=== PATIENT | male | born 1985 | race Caucasian/White ===

== ENCOUNTER 2024-07-30 11:32 | Emergency (ER) | payer MEDICAID ==
[2024-07-30 12:04] VITALS: RESP 20
[2024-07-30] MEDS ORDERED: TYLENOL EXTRA STRENGTH 500 MG ONE (12:05)
[2024-07-30] MEDS: TYLENOL EXTRA STRENGTH 500 MG PO STA (12:07)
[2024-07-30 12:27] LABS: Group A Strep NOT DETECTED (NEGATIVE)
[2024-07-30 12:39] LABS: INFLUENZA B NEGATIVE (NEGATIVE); RESPIRATORY SYNCTIAL VIRUS NEGATIVE (NEGATIVE); SARS-CoV-2 Xpert Express NEGATIVE (NEGATIVE)
[2024-07-30 12:40] LABS: INFLUENZA A POSITIVE (NEGATIVE)
--- NOTE | 2024-07-30 12:44 | ERPHSYRPT ---
- History of Present Illness Time Seen by Provider: 07/30/24 12:45 Patient Subjective Stated Complaint: Fever Triage Nursing Assessment: Patient ambulated back to ED and transferred self to bed. Patient A+O X3. Patient's skin flushed, warm and dry. Patient complains of fever, non productive cough, nausea and body aches since this AM. Patient called into work and was told to come to ER for work note. Lungs clear a/p beverley. Physician History: 39-year-old male presents to our ED for evaluation of cough fever body aches. Patient called into work today. They advised him to come to our ED for an evaluation and a work note. Patient's symptoms are constant. Symptoms are moderate in intensity. No specific worsening or improving factors. No chest pain or shortness of breath. No nausea vomiting or diaphoresis. No rash. Patient states he is otherwise healthy. He voices no other complaints or concerns at this time. Portions of this note were created with voice recognition technology. There may be grammatical, spelling, punctuation or sound alike errors Timing/Duration: today Severity: moderate Modifying Factors: Improves With: nothing Associated Symptoms: denies symptoms Allergies/Adverse Reactions: No Known Drug Allergies Allergy (Unverified 07/30/24 11:58) Home Medications: No Reportable Medications [No Reported Medications] 07/30/24 [History] Hx Tetanus, Diphtheria Vaccination/Date Given: No Hx Influenza Vaccination/Date Given: No Hx Pneumococcal Vaccination/Date Given: No Immunizations Up to Date: Yes Travel Risk - International Travel Have you traveled outside of the country in past 3 weeks: No - Emerging Infectious Disease Are you exhibiting symptoms associated with any current EIDs: Yes Symptoms: Cough: New Onset, Fever - Review of Systems Constitutional: No Symptoms, No Fever, No Chills Eyes: No Symptoms Ears, Nose, & Throat: No Symptoms Respiratory: No Symptoms, No Cough, No Dyspnea Cardiac: No Symptoms, No Chest Pain, No Edema, No Syncope Abdominal/Gastrointestinal: No Symptoms, No Abdominal Pain, No Nausea, No Vomiting, No Diarrhea Genitourinary Symptoms: No Symptoms, No Dysuria Musculoskeletal: No Symptoms, No Back Pain, No Neck Pain Skin: No Symptoms, No Rash Neurological: No Symptoms, No Dizziness, No Focal Weakness, No Sensory Changes Psychological: No Symptoms Endocrine: No Symptoms Hematologic/Lymphatic: No Symptoms Immunological/Allergic: No Symptoms All Other Systems: Reviewed and Negative - Past Medical History Pertinent Past Medical History: No Neurological History: No Pertinent History ENT History: No Pertinent History Cardiac History: No Pertinent History Respiratory History: No Pertinent History Endocrine Medical History: No Pertinent History Musculoskeletal History: No Pertinent History GI Medical History: No Pertinent History History: No Pertinent History Psycho-Social History: No Pertinent History Male Reproductive Disorders: No Pertinent History - Past Surgical History Past Surgical History: Yes Neuro Surgical History: No Pertinent History Cardiac: No Pertinent History Respiratory: No Pertinent History Gastrointestinal: No Pertinent History Genitourinary: No Pertinent History Musculoskeletal: Orthopedic Surgery Other Surgical History: Right ankle surgery - Social History Smoking Status: Current every day smoker How long have you smoked: years Exposure to second hand smoke: No Drug Use: none - Social Determinants of Health Will the patient participate in the screening: Yes Do you worry about a steady place to live?: No Do you have any problems with any of the following?: No known problems In the past 12 months,have you had to go without utilities?: No Transportation Issues: No Has anyone in your support network made you feel unsafe?: No Have you or anyone in your house had to go without enough: No - Nursing Vital Signs Nursing Vital Signs: Initial Vital Signs Temperature 100.5 F 07/30/24 11:58 Pulse Rate 108 H 07/30/24 11:58 Respiratory Rate 20 07/30/24 11:58 Blood Pressure 133/63 07/30/24 11:58 O2 Sat by Pulse Oximetry 98 07/30/24 11:58 Pain Scale Pain Intensity 5 - Physical Exam General Appearance: no apparent distress, alert Eye Exam: PERRL/EOMI, eyes nml inspection Ears, Nose, Throat Exam: normal ENT inspection, TMs normal, pharynx normal, moist mucous membranes Neck Exam: normal inspection, non-tender, supple, full range of motion Respiratory Exam: normal breath sounds, lungs clear, airway intact, No respiratory distress Cardiovascular Exam: regular rate/rhythm, normal heart sounds, normal peripheral pulses Gastrointestinal/Abdomen Exam: soft, normal bowel sounds, No tenderness, No mass Back Exam: normal inspection, normal range of motion, No CVA tenderness, No vertebral tenderness Extremity Exam: normal inspection, normal range of motion, pelvis stable Neurologic Exam: alert, oriented x 3, cooperative, normal mood/affect, sensation nml, No motor deficits Skin Exam: normal color, warm, dry, No rash Lymphatic Exam: No adenopathy SpO2 Interpretation: normal SpO2: 98 O2 Delivery: Room Air - Course Nursing assessment & vital signs reviewed: Yes - Radiology Exams Chest X-ray Interpretation: Discussed w/ radiologist (Nonremarkable chest x-ray) Ordered Tests: Active Orders 24 hr Category Date Time Status CHEST 1 VIEW (PORTABLE) Stat Exams 07/30/24 12:29 Completed Medication Summary Discontinued Medications Generic Name Dose Route Start Last Admin Trade Name Rose PRN Reason Stop Dose Admin Acetaminophen 1,000 mg 07/30/24 12:03 07/30/24 12:07 Acetaminophen 500 Mg Tablet PO 07/30/24 12:04 1,000 mg STAT STA Administration Acetaminophen Confirm 07/30/24 12:05 Acetaminophen 500 Mg Tablet Administered 07/30/24 12:06 Dose 1,000 mg .ROUTE .STK-MED ONE Ketorolac Tromethamine 60 mg 07/30/24 12:29 Ketorolac Tromethamine 30 Mg/Ml Inj IM 07/30/24 12:30 STAT ONE Lab/Rad Data: Laboratory Results 07/30/24 Range/Units 11:45 Influenza Type A Ag POSITIVE A (NEGATIVE) Influenza Type B Ag NEGATIVE (NEGATIVE) RSV (PCR) NEGATIVE (NEGATIVE) SARS-CoV-2 (PCR) NEGATIVE (NEGATIVE) Group A Strep Antibody NOT DETECTED (NEGATIVE) - Progress Progress: improved Progress Note: 39-year-old male presents for emergency department for evaluation of bodyaches cough and fever. Physical exam essentially nonremarkable. Patient is influenza A+. Patient received Tylenol and Motrin for myalgias. In light of patient's cough and fever chest x-ray was completed. Chest x-ray negative for acute pathology. No indication for further workup. Will discharge home. Work note provided. Patient instructed on symptomatic care and hydration. Patient agrees to follow-up with his primary care doctor within 48 hours for reevaluation. He voices no other complaints or concerns at this time. Portions of this note were created with voice recognition technology. There may be grammatical, spelling, punctuation or sound alike errors Complexity of problem addressed is moderate acute complicated. No critical care time. Complexity of data reviewed and analyzes is moderate. Test ordered chest reviewed results analyzed and correlated clinically with history and physical exam. Risk of complication and or risk of morbidity/mortality of patient management is low. Vital stable. Time spent to discharge patient is approximately 15 minutes. Plan of care established for shared decision making. No social determinants of health present to impede follow-up. Portions of this note were created with voice recognition technology. There may be grammatical, spelling, punctuation or sound alike errors 07/30/24 12:54 Counseled pt/family regarding: lab results, diagnosis, need for follow-up, rad results - Departure Departure Disposition: Home Clinical Impression: Influenza A, Body aches, Viral syndrome Condition: Stable Critical Care Time: No Referrals: DOCTOR,NO FAMILY [Primary Care Provider] - Follow up/PCP as directed VERNELL ANDERSEN MD [ACTIVE STAFF] - Follow up/PCP as directed Additional Instructions: Discharge/Care Plan MARYA DUNHAM was seen on 07/30/24 in the Emergency Room. The patient was counseled regarding Diagnosis,Lab results, Imaging studies, need for follow up and when to return to the Emergency Room. Prescriptions given: Discharge Note I have spoken with the patient and/or caregivers. I have explained the patient's condition, diagnosis and treatment plan based on the information available to me at this time. I have answered the patient's and/or caregiver's questions and addressed any concerns. The patient and/or caregivers have as good understanding of the patient's diagnosis, condition and treatment plan as can be expected at this point. The vital signs have been stable. The patient's condition is stable and appropriate for discharge from the emergency department. The patient will pursue further outpatient evaluation with the primary care physician or other designated or consulting physician as outlined in the dischar ge instructions. The patient and/or caregivers are agreeable to this plan of care and follow-up instructions have been explained in detail. The patient and/or caregivers have received these instruction. The patient/and or caregivers are aware that any significant change in condition or worsening of symptoms should prompt an immediate return to this or the closest emergency department or call 911. Forms: Work/School Release Form
--- NOTE | 2024-07-30 12:45 | XRAY ---
Indication: Fever and cough. Comparison: None Portable chest demonstrates normal heart, lungs, and bony thorax.
[2024-07-30] MEDS ORDERED: TORAdol 30 mg Injection ONE (13:08)
[2024-07-30] MEDS: TORAdol 30 mg Injection IM ONE (13:09)
[2024-07-30 13:43] VITALS: BP 121/58; PULSE 85; TEMP 98.4; O2SAT 97
== END 2024-07-30 13:20 | disposition home or self-care (01) ==
LOC: ED 11:32
DX: J10.1 Influenza due to other identified influenza virus with other respiratory manifestations (principal); B34.9 Viral infection, unspecified; M79.10 Myalgia, unspecified site; R50.9 Fever, unspecified; R05.9 Cough, unspecified; Z72.0 Tobacco use
CPT/HCPCS: 0241U; 71045; 87651; 96372; 99285; 99284; J1885; A9270-GY